=== PATIENT | female | born 1995 | race Caucasian/White ===

== ENCOUNTER 2024-08-15 02:17 | Emergency (ER) | payer OTHER ==
[~2024-08-15] VITALS: Ht 160 cm; Wt 65.9 kg
[2024-08-15 02:29] VITALS: TEMP 98
[2024-08-15 04:17] LABS: BASO # 0.1 10^3/uL (0.0-0.2); BASO % 0.8 % (0.0-1.0); EOS # 0.1 10^3/uL (0.0-0.5); EOS % 1.4 % (0.0-3.0); HEMATOCRIT 38.1 % (36.0-47.0); HEMOGLOBIN 13.5 g/dl (12.0-15.5); LYMPH # 2.8 10^3/uL (1.5-5.0); LYMPH % 44.2 % (24.0-44.0); MEAN CORPUSCULAR HEMOGLOBIN 31.2 pg (27.0-33.0); MEAN CORPUSCULAR HGB CONC 35.4 g/dl (32.0-36.5); MONO # 0.5 10^3/uL (0.0-0.8); MONO % 7.8 % (2.0-8.0); NEUTROPHILS # 2.8 10^3/uL (1.5-8.5); NEUTROPHILS % 45.5 % (36.0-66.0); PLATELET COUNT, AUTOMATED 315 10^3/uL (150-450); RED BLOOD COUNT 4.33 10^6/uL (4.00-5.40); WHITE BLOOD COUNT 6.3 10^3/uL (4.0-10.0)
[2024-08-15 04:20] LABS: BLOOD UREA NITROGEN 10 MG/DL (9-23); CALCIUM LEVEL 9.5 MG/DL (8.5-10.1); CARBON DIOXIDE LEVEL 23 MMOL/L (20-31); CHLORIDE LEVEL 108 MMOL/L (98-107); CREATININE FOR GFR 0.72 MG/DL (0.55-1.30); GLOMERULAR FILTRATION RATE > 60.0 (>60); GLUCOSE, FASTING 109 MG/DL (60-100); MAGNESIUM LEVEL 1.7 MG/DL (1.8-2.4); POTASSIUM SERUM 4.6 MMOL/L (3.5-5.1); SODIUM LEVEL 140 MMOL/L (136-145)
[2024-08-15 04:39] LABS: HCG, SERUM QUALITATIVE NEGATIVE (NEGATIVE)
[2024-08-15] MEDS ORDERED: ISOVUE-370 76% 100ML VIAL As Ordered ONE (04:42)
[2024-08-15] MEDS: MAG SULF 1GM/100ML (MAG RUN) 1 GM in IV 1 EA IV ONE (06:06)
[2024-08-15] MEDS ORDERED: HOLTER MONITOR XX (06:31)
[2024-08-15 06:45] VITALS: BP 101/63; O2SAT 99
== END 2024-08-15 07:15 | disposition home or self-care (01) ==
LOC: EDBD 02:17 → M ED 02:17
DX: R00.2 Palpitations (principal); R07.89 Other chest pain; I45.10 Unspecified right bundle-branch block; F10.10 Alcohol abuse, uncomplicated; Z88.0 Allergy status to penicillin; Z88.2 Allergy status to sulfonamides
CPT/HCPCS: 71275; 80048; 83735; 84703; 85025; 93005; 93041; 94760; 96365; 99285; J3475; Q9967

== ENCOUNTER → 2024-08-16 | Outpatient (CLI) | payer OTHER ==
[~2024-08-16] MED LIST: HOLTER MONITOR XX
== END ==
LOC: M EKG 08:24
PROVIDERS: ATTEND Emergency Medicine
DX: R00.2 Palpitations (principal); R00.0 Tachycardia, unspecified